=== PATIENT | female | born 1930 | race Caucasian/White ===

== ENCOUNTER 2016-09-06 14:04 | Emergency (ER) | payer MEDICARE ==
[2016-09-06 16:02] LABS: URINE APPEARANCE CLOUDY; URINE BILIRUBIN NEGATIVE (NEG); URINE BLOOD SMALL (NEG); URINE COLOR YELLOW; URINE GLUCOSE (UA) NEGATIVE (NEG); URINE KETONE NEGATIVE (NEG); URINE LEUKOCYTE ESTERASE POSITIVE (NEG); URINE NITRITE NEGATIVE (NEG); URINE PH 6.5 (5.0-8.0); URINE PROTEIN NEGATIVE (NEG)
[2016-09-06] MEDS ORDERED: LEVOTHYROXINE (16:08)
[2016-09-06] MEDS ORDERED: PRILOSEC (16:08)
[2016-09-06] MEDS ORDERED: IRON325 M2 PO (16:10)
[2016-09-06 16:12] LABS: URINE EPITHELIAL CELLS 0-1 /[HPF] (0-10); URINE RBC 0 /[HPF] (0-5); URINE WBC 20-25 /[HPF] (0-5)
[2016-09-06] MEDS ORDERED: MIRALAX17 G2 PO (16:30)
[2016-09-06] MEDS ORDERED: CIPRO500 M2 PO (16:30)
[2016-09-06] MEDS ORDERED: FLAGYL500 M1 PO (16:30)
[2016-09-06] MEDS ORDERED: COLACE100 M1 PO (16:30)
== END 2016-09-06 16:45 ==
LOC: EDMED 14:04
PROVIDERS: Emergency Medicine
DX: R10.32 Left lower quadrant pain (principal); K21.9 Gastro-esophageal reflux disease without esophagitis